=== PATIENT | female | born 1965 | race American Indian/Alaskan Native ===

== ENCOUNTER 2021-11-14 21:41 | Emergency (ER) | payer SELFPAY ==
[2021-11-15] MEDS ORDERED: HYDROmorphone 0.5 MG/0.5 ML Syringe IVPUSH ONE ×2 (00:50→02:34)
--- NOTE | 2021-11-15 00:56 | EDM.PDOC ---
ED HPI GENERAL MEDICAL PROBLEM - General Chief Complaint: Lower Extremity Injury/Pain Stated Complaint: FOOT IS SWOLLEN Time Seen by Provider: 11/15/21 00:40 Source of Information: Reports: Patient History Limitations: Reports: No Limitations - History of Present Illness INITIAL COMMENTS - FREE TEXT/NARRATIVE: 56 y/o F c/o wound on left foot and red streaking up her left leg for 2 days. Pt reports she has a callus on her L foot that began draining foul smelling fluid 2 days ago. She reports 8/10 pain in her foot. Has been eating and drinking. No recent trauma to the foot. No fever, chills, drugs, etoh, cp, db, abd pn. Denies medical hx, meds, allergies. - Related Data Allergies Allergy/AdvReac Type Severity Reaction Status Date / Time No Known Allergies Allergy Verified 11/15/21 00:24 Home Meds: Home Meds Ibuprofen 11/15/21 [History] diphenhydrAMINE [Benadryl] 11/15/21 [History] Social & Family History - Tobacco Use Tobacco Use Status *Q: Current Every Day Tobacco User Years of Tobacco use: 20 Packs/Tins Daily: 0.5 - Caffeine Use Caffeine Use: Reports: Coffee - Recreational Drug Use Recreational Drug Use: No Review of Systems - Review of Systems Review Of Systems: Comprehensive ROS is negative, except as noted in HPI. ED EXAM, GENERAL - Physical Exam Exam: See Below Exam Limited By: No Limitations General Appearance: Alert, WD/WN, No Apparent Distress Nose: Normal Inspection, Normal Mucosa, No Blood Throat/Mouth: Normal Inspection, Normal Lips, Normal Teeth, Normal Gums, Normal Oropharynx, Normal Voice, No Airway Compromise Head: Atraumatic, Normocephalic Neck: Normal Inspection, Supple, Non-Tender, Full Range of Motion Respiratory/Chest: No Respiratory Distress, Lungs Clear, Normal Breath Sounds, No Accessory Muscle Use, Chest Non-Tender Cardiovascular: Normal Peripheral Pulses, Regular Rate, Rhythm, No Edema, No Gallop, No JVD, No Murmur, No Rub GI/Abdominal: Normal Bowel Sounds, Soft, Non-Tender, No Organomegaly, No Distention, No Abnormal Bruit, No Mass (Female) Exam: Normal External Exam, Normal Speculum Exam, Normal Bimanual Exam Rectal (Female) Exam: Normal Exam, Normal Rectal Tone Back Exam: Normal Inspection, Full Range of Motion, NT Extremities: Other (plantar callus L foot draining purulent fluid. Swelling to plantar and dorsum of foot. Erythema ascending from foot to mid calf.) Neurological: Alert, Oriented, CN II-XII Intact, Normal Cognition, Normal Gait, Normal Reflexes, No Motor/Sensory Deficits Psychiatric: Normal Affect, Normal Mood Skin Exam: Warm, Dry, Intact, Normal Color, No Rash Lymphatic: No Adenopathy Course - Vital Signs Last Recorded V/S: Last Vital Signs Temp 99.6 F 11/15/21 02:06 Pulse 98 11/15/21 02:06 Resp 17 11/15/21 02:07 BP 131/86 11/15/21 02:07 Pulse Ox 98 11/15/21 02:07 - Orders/Labs/Meds Orders: Active Orders 24 hr Category Date Time Status CULTURE BLOOD [BC] Stat Lab 11/15/21 00:30 Received CULTURE BLOOD [BC] Stat Lab 11/15/21 01:50 Received Sodium Chloride 0.9% [Normal Saline] 1,000 ml Med 11/15/21 02:34 Active IV .BOLUS Vancomycin 1,500 mg Med 11/15/21 01:36 Active Sodium Chloride 0.9% [Normal Saline] 500 ml IV ONETIME Blood Culture x2 Reflex Set [OM.PC] Stat Oth 11/15/21 02:05 Ordered Medication Orders Vancomycin HCl 1,500 mg/ (Sodium Chloride) 500 mls @ 333.333 mls/hr IV ONETIME ONE Stop: 11/15/21 03:05 Last Admin: 11/15/21 02:04 Dose: 333.333 mls/hr Documented by: MARCIO Sodium Chloride (Normal Saline) 1,000 mls @ 125 mls/hr IV .BOLUS ONE Stop: 11/15/21 10:33 Labs: Laboratory Tests 11/15/21 11/15/21 11/15/21 Range/Units 00:30 00:30 00:30 WBC 13.1 H (5.0-10.0) 10^3/uL RBC 3.88 L (4.2-5.4) 10^6/uL Hgb 12.3 (12.0-16.0) g/dL Hct 36.2 L (37.0-47.0) % MCV 93.3 (80-100) fL MCH 31.7 (27.0-34.0) pg MCHC 34.0 (33.0-35.0) g/dL Plt Count 291 (150-450) 10^3/uL Neut % (Auto) 83.8 H (42.2-75.2) % Lymph % (Auto) 9.5 L (20.5-50.1) % [place] % (Auto) 6.2 (2-8) % Eos % (Auto) 0.3 L (1.0-3.0) % Baso % (Auto) 0.2 (0.0-1.0) % Sodium 129 L (136-145) mmol/L Potassium 3.6 (3.5-5.1) mmol/L Chloride 94 L (98-107) mmol/L Carbon Dioxide 23 (21-32) mmol/L Anion Gap 15.6 H (7-13) mEq/L BUN 11 (7-18) mg/dL Creatinine 0.71 (0.55-1.02) mg/dL Est Cr Clr Drug Dosing 120.97 mL/min Estimated GFR (MDRD) > 60 BUN/Creatinine Ratio 15.5 (No establ ref range) Glucose 108 H (70-99) mg/dL Lactic Acid 1.00 (0.56-1.39) mmol/L Calcium 8.6 (8.5-10.1) mg/dL Total Bilirubin 1.4 H (0.2-1.0) mg/dL AST 15 (15-37) U/L ALT 18 (14-59) U/L Alkaline Phosphatase 97 (46-116) U/L C-Reactive Protein 15.0 H (0.0-0.9) mg/dL Total Protein 7.0 (6.4-8.2) g/dL Albumin 3.0 L (3.4-5.0) g/dL Globulin 4.0 Albumin/Globulin Ratio 0.75 SARS-CoV-2 RNA (GAURI) (NEGATIVE) 11/15/21 Range/Units 01:45 WBC (5.0-10.0) 10^3/uL RBC (4.2-5.4) 10^6/uL Hgb (12.0-16.0) g/dL Hct (37.0-47.0) % MCV (80-100) fL MCH (27.0-34.0) pg MCHC (33.0-35.0) g/dL Plt Count (150-450) 10^3/uL Neut % (Auto) (42.2-75.2) % Lymph % (Auto) (20.5-50.1) % [place] % (Auto) (2-8) % Eos % (Auto) (1.0-3.0) % Baso % (Auto) (0.0-1.0) % Sodium (136-145) mmol/L Potassium (3.5-5.1) mmol/L Chloride (98-107) mmol/L Carbon Dioxide (21-32) mmol/L Anion Gap (7-13) mEq/L BUN (7-18) mg/dL Creatinine (0.55-1.02) mg/dL Est Cr Clr Drug Dosing mL/min Estimated GFR (MDRD) BUN/Creatinine Ratio (No establ ref range) Glucose (70-99) mg/dL Lactic Acid (0.56-1.39) mmol/L Calcium (8.5-10.1) mg/dL Total Bilirubin (0.2-1.0) mg/dL AST (15-37) U/L ALT (14-59) U/L Alkaline Phosphatase (46-116) U/L C-Reactive Protein (0.0-0.9) mg/dL Total Protein (6.4-8.2) g/dL Albumin (3.4-5.0) g/dL Globulin Albumin/Globulin Ratio SARS-CoV-2 RNA (GAURI) Negative (NEGATIVE) Meds: Medications Generic Name Dose Route Start Last Admin Trade Name Freq PRN Reason Stop Dose Admin Vancomycin HCl 1,500 mg/ 500 mls @ 333.333 mls/hr 11/15/21 01:36 11/15/21 02:04 Sodium Chloride IV 11/15/21 03:05 333.333 mls/hr ONETIME ONE Administration Sodium Chloride 1,000 mls @ 125 mls/hr 11/15/21 02:34 Normal Saline IV 11/15/21 10:33 .BOLUS ONE Discontinued Medications Generic Name Dose Route Start Last Admin Trade Name Freq PRN Reason Stop Dose Admin Hydromorphone HCl 0.5 mg 11/15/21 00:50 11/15/21 00:57 Hydromorphone 0.5 Mg/0.5 Ml Syringe IVPUSH 11/15/21 00:51 0.5 mg ONETIME ONE Administration Hydromorphone HCl 1 mg 11/15/21 02:34 Hydromorphone 0.5 Mg/0.5 Ml Syringe IVPUSH 11/15/21 02:35 ONETIME ONE Sodium Chloride 1,000 mls @ 999 mls/hr 11/15/21 01:34 11/15/21 01:46 Normal Saline IV 11/15/21 02:34 999 mls/hr .BOLUS ONE Administration Piperacillin Sod/Tazobactam 100 mls @ 200 mls/hr 11/15/21 02:15 Sod 3.375 gm/ Sodium Chloride IV 11/15/21 02:44 ONETIME ONE - Re-Assessments/Exams Free Text/Narrative Re-Assessment/Exam: 11/15/21 03:00 I have discussed the labs, ct and exam with the pt and explained the concern for necrotizing fascitis and the need for higher level of care and possibly surgical intervention. There are no beds in the [facility]. [facility], [facility], [facility], [facility], [place], [place], [place], [facility], [facility], [facility] are all full and not accepting transfers. I contacted [facility] in [place], [place] and spoke with a Dr. Mendoza in the ER. He accepted the pt for transfer. I will have her transferred via fixed wing to [facility]. Departure - Departure Time of Disposition: 03:04 Disposition: DC/Tfer to Acute Hospital 02 Condition: Serious Clinical Impression: Necrotizing fasciitis - Discharge Information *PRESCRIPTION DRUG MONITORING PROGRAM REVIEWED*: Not Applicable *COPY OF PRESCRIPTION DRUG MONITORING REPORT IN PATIENT BETHANY: Not Applicable Forms: ED Department Discharge, Interfacility Transfer EMTALA Sepsis Event Note (ED) - Focused Exam Vital Signs: Vital Signs Temp Pulse Resp BP Pulse Ox 11/15/21 02:07 17 131/86 98 11/15/21 02:06 99.6 F 98 17 131/86 11/15/21 01:20 99.8 F 102 H 16 120/75 97 11/15/21 00:23 99.7 F 106 H 18 140/87 97 - My Orders Last 24 Hours: My Active Orders 11/15/21 00:30 CULTURE BLOOD [BC] Stat 11/15/21 01:36 Vancomycin 1,500 mg Sodium Chloride 0.9% [Normal Saline] 500 ml IV ONETIME 11/15/21 01:50 CULTURE BLOOD [BC] Stat 11/15/21 02:05 Blood Culture x2 Reflex Set [OM.PC] Stat 11/15/21 02:34 Sodium Chloride 0.9% [Normal Saline] 1,000 ml IV .BOLUS - Assessment/Plan Last 24 Hours: My Active Orders 11/15/21 00:30 CULTURE BLOOD [BC] Stat 11/15/21 01:36 Vancomycin 1,500 mg Sodium Chloride 0.9% [Normal Saline] 500 ml IV ONETIME 11/15/21 01:50 CULTURE BLOOD [BC] Stat 11/15/21 02:05 Blood Culture x2 Reflex Set [OM.PC] Stat 11/15/21 02:34 Sodium Chloride 0.9% [Normal Saline] 1,000 ml IV .BOLUS
[2021-11-15 01:01] LABS: ANION GAP 15.6 mEq/L (7-13); CHLORIDE,CL 94 mmol/L (98-107); SODIUM,NA 129 mmol/L (136-145)
[2021-11-15] MEDS ORDERED: Sodium Chloride 0.9% 1,000 ML IV ONE ×2 (01:34→02:34)
--- NOTE | 2021-11-15 01:55 | CT ---
PROCEDURE INFORMATION: Exam: CT Left Lower Extremity Without Contrast, Foot Exam date and time: 11/15/2021 1:04 AM Age: 56 years old Clinical indication: Other: Plantar infection L foot with cellulitis TECHNIQUE: Imaging protocol: CT of the Left lower extremity without contrast was performed. Exam focused on the foot. Radiation optimization: All CT scans at this facility use at least one of these dose optimization techniques: automated exposure control; mA and/or kV adjustment per patient size (includes targeted exams where dose is matched to clinical indication); or iterative reconstruction. COMPARISON: No relevant prior studies available. FINDINGS: Bones/joints: Dislocation of the 2nd metatarsophalangeal joint. This is nonspecific. No acute fractures. Minor cortical irregularity of the 2nd metatarsal head is suggested. For instance, see series 6: Image 26. Possibility of early osteomyelitis of the 2nd metatarsal head should be considered. An MRI would be helpful for further evaluation and characterization. There is minor gas adjacent to this region on coronal series 6, image 26. 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 Soft tissues: Soft tissue swelling of the foot which is moderate to severe over the dorsum. There is soft tissue gas consistent with a necrotizing fasciitis or a infection with a gas producing organism. This is seen dorsally over the 2nd and 3rd ray. Plantar soft tissue swelling inferior to the 2nd metatarsal head. No abscess evident. IMPRESSION: 1. Soft tissue swelling over the dorsum of the foot with soft tissue gas concerning for a necrotizing fasciitis or infection with a gas producing organism. There is also minor soft tissue gas adjacent to the plantar aspect of the 2nd metatarsal head. see series 6, image 26. 2. Small cortical irregularities of the 2nd metatarsal head concerning for early osteomyelitis. 3. Dislocation of the 2nd metatarsophalangeal joint. 4. Soft tissue swelling on the plantar aspect of the foot adjacent to the 2nd metatarsal head consistent with soft tissue infection. No drainable abscess. 5. Midfoot mild degenerative arthritis.
[2021-11-15] MEDS ORDERED: Piperacillin/Tazobactam 3.375 GM in Sodium Chloride 0.9% 100 ML IV ONE (02:15)
== END 2021-11-15 04:07 ==
LOC: DL.ED 21:41
DX: M72.6 Necrotizing fasciitis (principal); Z72.0 Tobacco use; Z20.822 Contact with and (suspected) exposure to COVID-19
CPT/HCPCS: 36415; 73700; 80053; 83605; 85025; 86140; 87040; 87635; 96365; 96367; 96375; 96376; 99285; J1170; J2543; J3370; J7030; J7040; U0002

== ENCOUNTER 2021-12-06 17:09 | Emergency (ER) | payer SELFPAY | END 2021-12-06 17:57 | disposition home or self-care (01) | LOC: DL.ED 17:09 | DX: T81.89XA Other complications of procedures, not elsewhere classified, initial encounter (principal); Z89.512 Acquired absence of left leg below knee | CPT/HCPCS: 99283 ==